=== PATIENT | female | born 1985 | race American Indian/Alaskan Native ===

== ENCOUNTER 2016-10-07 04:38 | Emergency (ER) | payer OTHER ==
[2016-10-07 05:05] VITALS: BP 132/82
[2016-10-07] MEDS ORDERED: COMBIVIR 150-300 mg PO ONE (05:34)
--- NOTE | 2016-10-07 05:44 | Emergency Department Report ---
ED General Adult HPI - General Chief complaint: Medical Clearance Stated complaint: WORKMANS COMP Time Seen by Provider: 10/07/16 05:32 Source: patient Mode of arrival: Ambulatory Limitations: No Limitations - History of Present Illness Initial comments: 31-year-old female with no past medical history presenting to the emergency department after body fluid exposure of the patient. Patient is an employee of [employer]. She states with gloved hands she accidentally grazed her third finger of her right hand with a needle that had just punctured a patient. Patient states initially she did not feel the puncture, she felt a light grazed on her finger, there was no blood on finger, however when she took her glove off and applied pressure to the finger she was able to extract blood. Patient has no other complaints. Patient denies other exposures. - Related Data Previous Rx's Medication Instructions Recorded Last Taken Type Nelfinavir Mesylate [Viracept] 1,250 mg PO BIDWM #6 tablet 10/07/16 Unknown Rx lamiVUDine/ZIDOVUDINE [Combivir 1 each PO BID #6 tablet 10/07/16 Unknown Rx 150/300Mg] Allergies Allergy/AdvReac Type Severity Reaction Status Date / Time No Known Allergies Allergy Verified 08/30/15 04:24 ED Review of Systems ROS: Stated complaint: WORKMANS COMP Other details as noted in HPI Constitutional: denies: chills, fever Eyes: denies: eye pain, eye discharge, vision change ENT: denies: ear pain, throat pain Respiratory: denies: cough, shortness of breath, wheezing Cardiovascular: denies: chest pain, palpitations Endocrine: no symptoms reported Gastrointestinal: denies: abdominal pain, nausea, diarrhea Genitourinary: denies: urgency, dysuria, discharge Musculoskeletal: denies: back pain, joint swelling, arthralgia Skin: denies: rash, lesions Neurological: denies: headache, weakness, paresthesias Psychiatric: denies: anxiety, depression Hematological/Lymphatic: denies: easy bleeding, easy bruising ED Past Medical Hx - Past Medical History Previous Medical History?: Yes Hx Congestive Heart Failure: No Hx Diabetes: (new onset) Hx Asthma: Yes Hx COPD: No - Surgical History Past Surgical History?: Yes Additional Surgical History: feet and ankles - Social History Smoking Status: Never Smoker Substance Use Type: None - Medications Home Medications: Home Medications Medication Instructions Recorded Confirmed Last Taken Type Nelfinavir Mesylate [Viracept] 1,250 mg PO BIDWM #6 tablet 10/07/16 Unknown Rx lamiVUDine/ZIDOVUDINE [Combivir 1 each PO BID #6 tablet 10/07/16 Unknown Rx 150/300Mg] ED Physical Exam - General Limitations: No Limitations General appearance: alert, in no apparent distress - Head Head exam: Present: atraumatic, normocephalic - Eye Eye exam: Present: normal appearance - ENT ENT exam: Present: mucous membranes moist - Neck Neck exam: Present: normal inspection - Respiratory Respiratory exam: Present: normal lung sounds bilaterally. Absent: respiratory distress - Cardiovascular Cardiovascular Exam: Present: regular rate, normal rhythm. Absent: systolic murmur, diastolic murmur, rubs, gallop - GI/Abdominal GI/Abdominal exam: Present: soft, normal bowel sounds - Extremities Exam Extremities exam: Present: normal inspection - Back Exam Back exam: Present: normal inspection - Neurological Exam Neurological exam: Present: alert, oriented X3 - Psychiatric Psychiatric exam: Present: normal affect, normal mood - Skin Skin exam: Present: warm, dry, intact, normal color, other (pt and has small puncture wound on the lateral portion of the tip of her third finger). Absent: rash ED Course Vital Signs 10/07/16 10/07/16 05:01 05:31 Temperature 97.7 F 97.7 F Pulse Rate 76 76 Respiratory 18 18 Rate Blood Pressure 132/82 Blood Pressure 132/82 [Right] O2 Sat by Pulse 100 Oximetry - Reevaluation(s) Reevaluation #1: 10/07/16 05:43 Patient resting complaints ED Medical Decision Making - Lab Data Result diagrams: 10/07/16 05:32 10/07/16 05:32 - Medical Decision Making 31-year-old female presenting to the emergency room after blood/body fluid exposure of a patient. I have followed the employee guidelines/handbook L start patient on Combivir and Viracept Critical care attestation.: If time is entered above; I have spent that time in minutes in the direct care of this critically ill patient, excluding procedure time. ED Disposition Clinical Impression: Patient exposure to body fluids Disposition: DC- TO HOME OR SELFCARE Is pt being admited?: No Does the pt Need Aspirin: No Condition: Stable Instructions: Postexposure Prophylaxis (ED) Prescriptions: lamiVUDine/ZIDOVUDINE [Combivir 150/300Mg] 1 each PO BID #6 tablet Nelfinavir Mesylate [Viracept] 1,250 mg PO BIDWM #6 tablet Referrals: PRIMARY CAREMD [Primary Care Provider] - [facility] [employer] [facility], [LAB/CONTRACT] - 24 Hours KWAN ORTIZ MD [Staff Physician] - 24 Hours
[2016-10-07 05:51] LABS: Bilirubin,Urine NEG (Negative); Blood,Urine NEG (Negative); Ketones,Urine NEG (Negative); Leukocyte Esterase,Urine MOD (Negative); Mucus,Urine FEW /HPF; Nitrite,Urine NEG (Negative); Protein,Urine <15 mg/dL mg/dL (Negative); Urobilinogen,Urine < 2.0 mg/dL (<2.0)
[2016-10-07 05:55] LABS: Basophils % (Auto) 0.5 % (0.0-1.8); Eosinophils % (Auto) 2.6 % (0.0-4.3); Hematocrit 37.2 % (30.3-42.9); Hemoglobin 11.6 gm/dl (10.1-14.3); Mean Corpuscular HGB Conc 31 % (30-34); Mean Corpuscular Volume 74 fl (79-97); Platelet Count 432 K/mm3 (140-440); Red Blood Count 4.99 M/mm3 (3.65-5.03); Red Cell Distribution Width 17.1 % (13.2-15.2); White Blood Count 7.6 K/mm3 (4.5-11.0)
[2016-10-07 06:03] LABS: Anion Gap 17 mmol/L; BUN/Creatinine Ratio 11.66; Blood Urea Nitrogen 7 mg/dL (7-17); Calcium 9.3 mg/dL (8.4-10.2); Carbon Dioxide 26 mmol/L (22-30); Chloride 100.6 mmol/L (98-107); Glucose 110 mg/dL (65-100); Mean Corpuscular Hemoglobin 23 pg (28-32); Sodium 140 mmol/L (137-145)
[2016-10-07 06:13] LABS: HIV-1 Antigen p24 Non React (Non React); HIVR-1/2 Ab Non React (Non React)
[2016-10-07] MEDS ORDERED: RETROVIR PO ONE (07:00)
[2016-10-07] MEDS ORDERED: VIRACEPT PO SCH ×2 (07:00→10:00)
[2016-10-07] MEDS ORDERED: EPIVIR PO ONE (07:00)
== END 2016-10-07 07:10 | disposition home or self-care (01) ==
LOC: ED 04:38
DX: Z77.21 Contact with and (suspected) exposure to potentially hazardous body fluids (principal); J45.909 Unspecified asthma, uncomplicated
CPT/HCPCS: 36415; 80048; 80074; 81001; 81025; 85025; 87806; 99283

== ENCOUNTER 2016-11-12 20:16 | Emergency (ER) | payer SELFPAY ==
[2016-11-12 21:37] LABS: Basophils % (Auto) 0.5 % (0.0-1.8); Eosinophils % (Auto) 3.2 % (0.0-4.3); Hematocrit 35.8 % (30.3-42.9); Hemoglobin 11.3 gm/dl (10.1-14.3); Mean Corpuscular HGB Conc 32 % (30-34); Mean Corpuscular Volume 73 fl (79-97); Platelet Count 415 K/mm3 (140-440); Red Blood Count 4.88 M/mm3 (3.65-5.03); Red Cell Distribution Width 17.7 % (13.2-15.2); White Blood Count 10.4 K/mm3 (4.5-11.0)
[2016-11-12 21:43] LABS: Mean Corpuscular Hemoglobin 23 pg (28-32)
[2016-11-12 22:07] LABS: Alanine Aminotransferase 8 units/L (7-56); Albumin 4.2 g/dL (3.9-5); Albumin/Globulin Ratio 1.1 %; Alkaline Phosphatase 110 units/L (35-129); Anion Gap 16 mmol/L; BUN/Creatinine Ratio 13.33; Blood Urea Nitrogen 8 mg/dL (7-17); Carbon Dioxide 28 mmol/L (22-30); Chloride 99.6 mmol/L (98-107); Glucose 80 mg/dL (65-100); Lipase 13 units/L (13-60); Potassium 4.2 mmol/L (3.6-5.0); Sodium 139 mmol/L (137-145); Total Protein 8.2 g/dL (6.3-8.2)
[2016-11-12 22:08] LABS: Creatine Kinase 63 units/L (30-135)
[2016-11-12 22:14] LABS: Creatine Kinase MB < 1.0 ng/mL (0.0-4.0)
[2016-11-13 00:14] LABS: Bilirubin,Urine NEG (Negative); Blood,Urine NEG (Negative); Ketones,Urine NEG (Negative); Leukocyte Esterase,Urine LG (Negative); Mucus,Urine FEW /HPF; Nitrite,Urine NEG (Negative); Protein,Urine <15 mg/dL mg/dL (Negative)
--- NOTE | 2016-11-13 01:49 | Cat Scan Report ---
FINAL REPORT PROCEDURE: CT ABDOMEN PELVIS WO CON TECHNIQUE: Computerized axial tomography of the abdomen and pelvis was performed without intravenous contrast. This study is performed without intravascular contrast material and its sensitivity for abdominal and pelvic pathology, including neoplasms, inflammation, abscess, free fluid, thrombosis, arterial dissection and infarction, is reduced compared with a contrast enhanced study. HISTORY: abd pain COMPARISON: No prior studies are available for comparison. FINDINGS: Visualized lower thorax: No significant abnormality. Liver: Normal size and attenuation. Spleen: Normal size and attenuation. Gallbladder and biliary system: Normal. Pancreas: Normal. Adrenals: Normal. Kidneys: There are no kidney stones. There is no hydronephrosis or ureterolithiasis.. GI tract: There is no bowel obstruction, colitis or enteritis. The appendix is normal.. Lymph nodes and mesentery: Normal. Vasculature: Normal. Bladder: Normal. Reproductive organs: The uterus is intact. There is a cystic mass anterior to the uterus and superior to the urinary bladder measuring 10.5 by 7 by 10.3 centimeters. This could be a large left ovarian cyst. The right ovary measures 2.8 x 4.6 centimeters.. Peritoneum: There is no ascites or free air, abscess or adenopathy.. Musculoskeletal structures: No significant abnormality. Other: None. IMPRESSION: There are no kidney stones. There is no hydronephrosis or ureterolithiasis.. There is no bowel obstruction, colitis or enteritis. The appendix is normal.. There is a cystic mass anterior to the uterus and superior to the urinary bladder measuring 10.5 by 7 by 10.3 centimeters. This could be a large left ovarian cyst. Cystic neoplasm not excluded. Follow-up recommended. The right ovary measures 2.8 x 4.6 centimeters.. There is no ascites or free air, abscess or adenopathy.. .
--- NOTE | 2016-11-13 03:05 | Emergency Department Report ---
ED Abdominal Pain HPI - General Chief Complaint: Abdominal Pain Stated Complaint: SHARP ABD PAIN Time Seen by Provider: 11/13/16 03:10 Source: patient, family Mode of arrival: Ambulatory Limitations: No Limitations - History of Present Illness Initial Comments: Patient here reports that she has right lower quadrant abdominal pain since Tuesday which feels sharp and pressure radiating to her right leg and back. She is also complaining or right leg and right lower back pain since Tuesday. She denies nausea or vomiting. Denies diarrhea. Denies vaginal discharge or bleeding. Denies painful urination or any trauma. Last bowel movement was yesterday. Pain is 5 out of 10. No [id number] medication taken. She denies any fever or chills. Patient has a history of new onset diabetes and asthma. She had surgery to her feet and ankles in the past. MD Complaint: abdominal pain Onset/Timin -: days(s) Location: RLQ Radiation: back, other (right leg right leg) Migration to: no migration Severity scale (0 -10): 5 Quality: sharp Consistency: intermittent Improves With: nothing Worsens With: nothing Context: other (unknown) Associated Symptoms: denies: nausea, vomiting, diarrhea, fever, chills, constipation, dysuria, hematemesis, hematochezia, melena, hematuria, anorexia, syncope Treatments Prior to Arrival: NSAIDs - Related Data LMP Date: 10/01/16 Previous Rx's Medication Instructions Recorded Last Taken Type Nelfinavir Mesylate [Viracept] 1,250 mg PO BIDWM #6 tablet 10/07/16 Unknown Rx lamiVUDine/ZIDOVUDINE [Combivir 1 each PO BID #6 tablet 10/07/16 Unknown Rx 150/300Mg] Naproxen [Naprosyn TAB] 500 mg PO BID PRN #20 tablet 11/13/16 Unknown Rx Nitrofurantoin Obion/M-Cryst 100 mg PO Q12HR #14 capsule 11/13/16 Unknown Rx [Macrobid CAP] Promethazine [Phenergan TAB] 25 mg PO Q8HR PRN #15 tab 11/13/16 Unknown Rx Allergies Allergy/AdvReac Type Severity Reaction Status Date / Time No Known Allergies Allergy Verified 08/30/15 04:24 ED Review of Systems ROS: Stated complaint: SHARP ABD PAIN Other details as noted in HPI Comment: All other systems reviewed and negative Constitutional: denies: chills, fever Respiratory: no symptoms reported Cardiovascular: denies: chest pain, palpitations, edema, syncope Gastrointestinal: abdominal pain. denies: nausea, vomiting, diarrhea, constipation, hematemesis, melena, hematochezia Genitourinary: denies: urgency, dysuria, frequency, hematuria, discharge Musculoskeletal: back pain, arthralgia. denies: joint swelling, myalgia Skin: denies: rash Neurological: denies: headache, weakness, numbness, paresthesias, confusion, abnormal gait, vertigo ED Past Medical Hx - Past Medical History Previous Medical History?: Yes Hx Congestive Heart Failure: No Hx Diabetes: Yes (new onset) Hx Asthma: Yes Hx COPD: No - Surgical History Past Surgical History?: Yes Additional Surgical History: feet and ankles - Family History Family history: hypertension - Social History Smoking Status: Never Smoker Substance Use Type: Alcohol - Medications Home Medications: Home Medications Medication Instructions Recorded Confirmed Last Taken Type Nelfinavir Mesylate [Viracept] 1,250 mg PO BIDWM #6 tablet 10/07/16 Unknown Rx lamiVUDine/ZIDOVUDINE [Combivir 1 each PO BID #6 tablet 10/07/16 Unknown Rx 150/300Mg] Naproxen [Naprosyn TAB] 500 mg PO BID PRN #20 tablet 11/13/16 Unknown Rx Nitrofurantoin Obion/M-Cryst 100 mg PO Q12HR #14 capsule 11/13/16 Unknown Rx [Macrobid CAP] Promethazine [Phenergan TAB] 25 mg PO Q8HR PRN #15 tab 11/13/16 Unknown Rx ED Physical Exam - General Limitations: No Limitations General appearance: alert, in no apparent distress - Head Head exam: Present: atraumatic, normocephalic, normal inspection - Eye Eye exam: Present: normal appearance, PERRL, EOMI Pupils: Present: normal accommodation - ENT ENT exam: Present: normal exam, normal orophraynx, mucous membranes moist - Neck Neck exam: Present: normal inspection, full ROM. Absent: tenderness, meningismus, lymphadenopathy - Respiratory Respiratory exam: Present: normal lung sounds bilaterally. Absent: respiratory distress, chest wall tenderness - Cardiovascular Cardiovascular Exam: Present: regular rate, normal rhythm, normal heart sounds - GI/Abdominal GI/Abdominal exam: Present: soft, tenderness, guarding, rebound, normal bowel sounds. Absent: distended, rigid, organomegaly, mass, bruit, pulsatile mass, hernia - Extremities Exam Extremities exam: Present: normal inspection, full ROM, normal capillary refill , other (no neurovascular compromise, no clubbing cyanosis or edema. +2 pulses in all extremities. Capillary refill is less than 3 seconds in all extremities. No joint deformities, crepitus, erythema or swelling. Full range of motion to all extremities with +5/5 strength in all extremities. No motor or sensory deficits to extremities. Patient able to ambulate without any difficulties.). Absent: tenderness, pedal edema, joint swelling, calf tenderness - Back Exam Back exam: Present: normal inspection, full ROM. Absent: tenderness, CVA tenderness (R), CVA tenderness (L), muscle spasm, paraspinal tenderness, vertebral tenderness, rash noted - Expanded Back Exam Expanded Back exam: Absent: saddle anesthesia Back exam: Negative Straight Leg Raising: Left, Right - Neurological Exam Neurological exam: Present: alert, oriented X3, normal gait, reflexes normal. Absent: motor sensory deficit - Psychiatric Psychiatric exam: Present: normal affect, normal mood - Skin Skin exam: Present: warm, dry, intact, normal color. Absent: rash ED Course Vital Signs 11/12/16 20:45 Temperature 99.0 F Pulse Rate 97 H Respiratory 20 Rate Blood Pressure 138/84 [Right] O2 Sat by Pulse 100 Oximetry Vital Signs 11/12/16 11/13/16 20:45 05:57 Temperature 99.0 F Pulse Rate 97 H Respiratory 20 18 Rate Blood Pressure 138/84 [Right] O2 Sat by Pulse 100 100 Oximetry Vital Signs 11/12/16 11/13/16 11/13/16 20:45 05:57 06:12 Temperature 99.0 F Pulse Rate 97 H 74 Respiratory 20 18 18 Rate Blood Pressure 138/84 134/95 [Right] O2 Sat by Pulse 100 100 99 Oximetry - Reevaluation(s) Reevaluation #1: 11/13/16 06:12 Patient received Zofran 8 mg ODT, Rocephin 1 g IM and Percocet 5/325 2 tablets by mouth in emergency room. ED Medical Decision Making - Lab Data Result diagrams: 11/12/16 21:01 11/12/16 21:01 Lab Results 11/12/16 11/12/16 11/12/16 Range/Units 21:01 21:01 21:01 WBC 10.4 (4.5-11.0) K/mm3 RBC 4.88 (3.65-5.03) M/mm3 Hgb 11.3 (10.1-14.3) gm/dl Hct 35.8 (30.3-42.9) % MCV 73 L (79-97) fl MCH 23 L (28-32) pg MCHC 32 (30-34) % RDW 17.7 H (13.2-15.2) % Plt Count 415 (140-440) K/mm3 Lymph % (Auto) 18.5 (13.4-35.0) % Obion % (Auto) 4.7 (0.0-7.3) % Eos % (Auto) 3.2 (0.0-4.3) % Baso % (Auto) 0.5 (0.0-1.8) % Lymph # 1.9 (1.2-5.4) K/mm3 Obion # 0.5 (0.0-0.8) K/mm3 Eos # 0.3 (0.0-0.4) K/mm3 Baso # 0.0 (0.0-0.1) K/mm3 Seg Neutrophils % 73.1 H (40.0-70.0) % Seg Neutrophils # 7.6 (1.8-7.7) K/mm3 Sodium 139 (137-145) mmol/L Potassium 4.2 (3.6-5.0) mmol/L Chloride 99.6 (98-107) mmol/L Carbon Dioxide 28 (22-30) mmol/L Anion Gap 16 mmol/L BUN 8 (7-17) mg/dL Creatinine 0.6 L (0.7-1.2) mg/dL Estimated GFR > 60 ml/min BUN/Creatinine Ratio 13.33 % Glucose 80 (65-100) mg/dL Lactic Acid (0.7-2.0) mmol/L Calcium 9.0 (8.4-10.2) mg/dL Total Bilirubin 0.40 (0.1-1.2) mg/dL AST 13 (5-40) units/L ALT 8 (7-56) units/L Alkaline Phosphatase 110 (35-129) units/L Total Creatine Kinase (30-135) units/L CK-MB (CK-2) (0.0-4.0) ng/mL CK-MB (CK-2) Rel Index (0-4) C-Reactive Protein (0.00-1.30) mg/dL Total Protein 8.2 (6.3-8.2) g/dL Albumin 4.2 (3.9-5) g/dL Albumin/Globulin Ratio 1.1 % Lipase 13 (13-60) units/L HCG, Qual Negative (Negative) Urine Color (Yellow) Urine Turbidity (Clear) Urine pH (5.0-7.0) Ur Specific [place] (1.003-1.030) Urine Protein (Negative) mg/dL Urine Glucose (UA) (Negative) mg/dL Urine Ketones (Negative) mg/dL Urine Blood (Negative) Urine Nitrite (Negative) Urine Bilirubin (Negative) Urine Urobilinogen (<2.0) mg/dL Ur Leukocyte Esterase (Negative) Urine WBC (Auto) (0.0-6.0) /HPF Urine RBC (Auto) (0.0-6.0) /HPF U Epithel Cells (Auto) (0-13.0) /HPF Urine Mucus /HPF 11/12/16 11/12/16 11/12/16 Range/Units 21:01 21:01 23:16 WBC (4.5-11.0) K/mm3 RBC (3.65-5.03) M/mm3 Hgb (10.1-14.3) gm/dl Hct (30.3-42.9) % MCV (79-97) fl MCH (28-32) pg MCHC (30-34) % RDW (13.2-15.2) % Plt Count (140-440) K/mm3 Lymph % (Auto) (13.4-35.0) % Obion % (Auto) (0.0-7.3) % Eos % (Auto) (0.0-4.3) % Baso % (Auto) (0.0-1.8) % Lymph # (1.2-5.4) K/mm3 [place] # (0.0-0.8) K/mm3 Eos # (0.0-0.4) K/mm3 Baso # (0.0-0.1) K/mm3 Seg Neutrophils % (40.0-70.0) % Seg Neutrophils # (1.8-7.7) K/mm3 Sodium (137-145) mmol/L Potassium (3.6-5.0) mmol/L Chloride (98-107) mmol/L Carbon Dioxide (22-30) mmol/L Anion Gap mmol/L BUN (7-17) mg/dL Creatinine (0.7-1.2) mg/dL Estimated GFR ml/min BUN/Creatinine Ratio % Glucose (65-100) mg/dL Lactic Acid 0.40 L (0.7-2.0) mmol/L Calcium (8.4-10.2) mg/dL Total Bilirubin (0.1-1.2) mg/dL AST (5-40) units/L ALT (7-56) units/L Alkaline Phosphatase (35-129) units/L Total Creatine Kinase 63 (30-135) units/L CK-MB (CK-2) < 1.0 (0.0-4.0) ng/mL CK-MB (CK-2) Rel Index 1.5 (0-4) C-Reactive Protein 2.80 H (0.00-1.30) mg/dL Total Protein (6.3-8.2) g/dL Albumin (3.9-5) g/dL Albumin/Globulin Ratio % Lipase (13-60) units/L HCG, Qual (Negative) Urine Color Yellow (Yellow) Urine Turbidity Cloudy (Clear) Urine pH 5.0 (5.0-7.0) Ur Specific [place] 1.024 (1.003-1.030) Urine Protein <15 mg/dl (Negative) mg/dL Urine Glucose (UA) Neg (Negative) mg/dL Urine Ketones Neg (Negative) mg/dL Urine Blood Neg (Negative) Urine Nitrite Neg (Negative) Urine Bilirubin Neg (Negative) Urine Urobilinogen 2.0 (<2.0) mg/dL Ur Leukocyte Esterase Lg (Negative) Urine WBC (Auto) 27.0 H (0.0-6.0) /HPF Urine RBC (Auto) 18.0 (0.0-6.0) /HPF U Epithel Cells (Auto) 40.0 H (0-13.0) /HPF Urine Mucus Few /HPF Urine culture pending - Radiology Data Radiology results: report reviewed CT scan of the abdomen and pelvis without contrast revealed there are no kidney stones. There are no hydronephrosis or ureteral stones noted. There is no bowel obstruction, colitis or enteritis. The appendix is normal. There is a cystic mass anterior to the uterus and superior to the urinary bladder measuring 10.5 x 7 x 10.3 cm. This could be a large left ovarian cyst. Cystic neoplasm not excluded. Follow-up recommended. The right ovary measured 2.8 x 4.6 cm. There is no ascites or free fluid abscess , liver, spleen, gallbladder and biliary systems normal pancreas and adrenals are normal. Lymph nodes and mesenteric normal. Vasculature is normal bladder is normal. Ultrasound transvaginal and pelvic complete to reveals right adnexal cyst measuring 10.3 cm. There is no solid mass. Left ovary is normal. There are uterine fibroids. There is no free fluid. Cervix is normal. - Medical Decision Making ED course: Patient here with right lower quadrant abdominal pain or radiation to right back and leg. CT scan revealed that patient had cystic mass and could not rule out neoplasm. CT scan also revealed fibroids but no other abnormalities. Patient had pelvic and transvaginal ultrasound done which revealed a right adnexal cyst without any solid mass. Left ovary is normal and uterine fibroids seen. Please refer to radiology report for details on CT scan and ultrasound. CBC within normal limits, C-reactive protein mildly elevated, urinalysis positive for bacterial infection and urine cultures pending. test is negative. CMP is normal. Work and ultrasound along with CT scan discussed the patient and she voiced understanding. She was understanding of diagnosis and treatment plan. Discussed the patient she will need to follow- up with [employer] on patient for further follow-up of ovarian cyst and fibroids. I also told her that is possibly have been lower extremity pain due to fibroids but she'll need to verify this with [employer] [facility] follow-up. Patient was given Rocephin 1 g IM for urinary tract infection, Zofran 8 mg by mouth ODT for nausea prevention and Percocet 5/325 2 tablets by mouth for pain. Patient discharged home with prescription for naproxen and Macrobid in stable condition accompanied by her family member. Critical care attestation.: If time is entered above; I have spent that time in minutes in the direct care of this critically ill patient, excluding procedure time. ED Disposition Clinical Impression: Ovarian cyst, right, Acute cystitis without hematuria, Right lower quadrant abdominal pain, Arthralgia of right lower leg Uterine fibroid Qualifiers: Uterine leiomyoma location: unspecified location Qualified Code(s): D25.9 - Leiomyoma of uterus, unspecified Back pain Qualifiers: Back pain location: low back pain Chronicity: acute Back pain laterality: right Sciatica presence: without sciatica Qualified Code(s): M54.5 - Low back pain Disposition: TO HOME OR SELFCARE Is pt being admited?: No Does the pt Need Aspirin: No Condition: Stable Instructions: Abdominal Pain (ED), Arthralgia (ED), Ovarian Cyst (ED), Uterine Fibroids (ED), Acute Low Back Pain (ED), Urinary Tract Infection in Women (ED) Additional Instructions: Please take antibiotic as prescribed. Follow-up with [facility] [facility] that you were referred to. Please see discharge instruction paperwork for phone number and address. Please follow up with [employer] [facility] regarding in ovarian cyst and uterine fibroids. Please increase her fluid intake. Take naproxen for pain as instructed Prescriptions: Naproxen [Naprosyn TAB] 500 mg PO BID PRN #20 tablet PRN Reason: Pain Nitrofurantoin Obion/M-Cryst [Macrobid CAP] 100 mg PO Q12HR #14 capsule Promethazine [Phenergan TAB] 25 mg PO Q8HR PRN #15 tab PRN Reason: Nausea Referrals: ZBIGNIEW NUÑEZ MD [Staff Physician] - 2-3 Days PRIMARY CAREMD [Primary Care Provider] - 2-3 Days Forms: Accompanied Note, Work/School Release Form(ED)
[2016-11-13] MEDS ORDERED: XYLOCAINE 1% MPF 5 mL INFILTRATI ONE (03:16)
[2016-11-13] MEDS ORDERED: ZOFRAN ODT ONE (03:16)
[2016-11-13] MEDS ORDERED: ROCEPHIN IM STA (03:16)
[2016-11-13] MEDS ORDERED: PERCOCET 5/325 PO ONE (03:16)
[2016-11-13] MEDS ORDERED: ZOFRAN ODT PO ONE (03:16)
[2016-11-13] MEDS ORDERED: PERCOCET 5/325 ONE (03:16)
--- NOTE | 2016-11-13 04:22 | Ultrasound Report ---
FINAL REPORT PROCEDURE: US PELVIC COMPLETE TECHNIQUE: Real-time transabdominal sonography in multiple planes of pelvis was performed with image documentation. This examination was performed without Doppler. Vascular abnormalities, including ovarian torsion, will not be detectable without Doppler evaluation. CPT 60955 HISTORY: CT shows cystic mass ant buterus/superior bladder COMPARISON: No prior studies are available for comparison. FINDINGS: UTERUS Size: 6.2 x 4.9 x 4.6 cm. Endometrial thickness: 5.4 mm. Orientation: anteverted. Cervix: Normal. Fibroids/masses: There are 2 discrete fibroids measuring 1.6 at 3.3 centimeters.. RIGHT Ovary: No discrete ovary is seen. There is a cystic mass measuring 10.3 centimeters in diameter. LEFT Ovary: 2.2 x 1.9 x 1.8 cm. Appearance: Normal. Pelvic fluid: None. Other: None. IMPRESSION: Right adnexal cyst measuring 10.3 centimeters. There is no solid mass. Left ovary is normal. There are uterine fibroids. There is no free fluid.
--- NOTE | 2016-11-13 04:24 | Ultrasound Report ---
FINAL REPORT PROCEDURE: US PELVIC TRANSVAGINAL TECHNIQUE: Real-time transvaginal sonography in multiple planes of pelvis was performed with image documentation. This examination was performed without Doppler. Vascular abnormalities, including ovarian torsion, will not be detectable without Doppler evaluation. HISTORY: CT shows cystic mass ant buterus/superior bladder COMPARISON: No prior studies are available for comparison. FINDINGS: UTERUS Size: 6.2 x 4.9 x 4.6 cm. Endometrial thickness: 5.4 mm. Orientation: anteverted. Cervix: Normal. Fibroids/masses: There are 2 discrete fibroids measuring 1.6 at 3.3 centimeters.. RIGHT Ovary: No discrete ovary is seen. There is a cystic mass measuring 10.3 centimeters in diameter. LEFT Ovary: 2.2 x 1.9 x 1.8 cm. Appearance: Normal. Pelvic fluid: None. Other: None. IMPRESSION: Right adnexal cyst measuring 10.3 centimeters. There is no solid mass. Left ovary is normal. There are uterine fibroids. There is no free fluid.
[2016-11-13 06:13] VITALS: BP 134/95
== END 2016-11-13 06:36 | disposition home or self-care (01) ==
LOC: ED 20:16 → EEVIPCON 20:16 → ED 11-13 06:36
DX: D25.9 Leiomyoma of uterus, unspecified (principal); N30.00 Acute cystitis without hematuria; N83.201 Unspecified ovarian cyst, right side; M54.5 Low back pain; R10.31 Right lower quadrant pain; E11.9 Type 2 diabetes mellitus without complications; J45.909 Unspecified asthma, uncomplicated
CPT/HCPCS: 36415; 74176; 76830; 76856; 80053; 81001; 82140; 82550; 82553; 83690; 84703; 85025; 86140; 87086; 96372; 99284; J0696; Q0162

== ENCOUNTER 2017-05-03 00:07 | Emergency (ER) | payer SELFPAY ==
[2017-05-03] MEDS ORDERED: ZOFRAN IM ONE (00:26)
[2017-05-03 01:49] LABS: BUN/Creatinine Ratio 22; Basophils % (Auto) 0.4 % (0.0-1.8); Blood Urea Nitrogen 13 mg/dL (7-17); Calcium 9.2 mg/dL (8.4-10.2); Eosinophils # (Auto) 0.2 K/mm3 (0.0-0.4); Eosinophils % (Auto) 2.4 % (0.0-4.3); Hematocrit 36.6 % (30.3-42.9); Hemoglobin 11.8 gm/dl (10.1-14.3); Hemolysis Index 0; Lymphocytes # (Auto) 1.1 K/mm3 (1.2-5.4); Lymphocytes % (Auto) 14.3 % (13.4-35.0); Mean Corpuscular HGB Conc 32 % (30-34); Mean Corpuscular Volume 76 fl (79-97); Monocytes # (Auto) 0.3 K/mm3 (0.0-0.8); Platelet Count 396 K/mm3 (140-440); Red Blood Count 4.79 M/mm3 (3.65-5.03); Red Cell Distribution Width 17.5 % (13.2-15.2)
[2017-05-03 01:50] LABS: Mean Corpuscular Hemoglobin 25 pg (28-32)
[2017-05-03] MEDS ORDERED: ANTIVERT PO ONE (10:26)
[2017-05-03] MEDS ORDERED: REGLAN IV ONE (10:26)
--- NOTE | 2017-05-03 10:28 | Emergency Department Report ---
ED Dizziness HPI - General Chief Complaint: Syncope Stated Complaint: DIZZY/ Time Seen by Provider: 05/03/17 10:12 Source: patient, RN notes reviewed, old records reviewed Mode of arrival: Ambulatory Limitations: No Limitations - History of Present Illness Initial Comments: This is a 32-year-old female who is previously unknown to this provider, patient has a past medical history of asthma, presents to the ER today with a complaint of room spinning and movement since [place] time. She initially reported that the sensation is intermittent, and then she reported that it is constant. The sensation worsens with movement, and decreases with rest. Denies severe headache, neck pain, chest pain, abdominal pain, shortness of breath, visual loss, focal extremity weakness, numbness. Patient denies tinnitus, denies change in auditory acuity, denies recent cold/ upper respiratory tract symptoms. MD Complaint: dizziness, difficulty walking -: Gradual, days(s) Timing: sudden onset Description: "room spinning" History of Same: No History of Trauma: No Severity: moderate Improves With: remaining still Worsens With: movement Associated Symptoms: ataxia. denies: chest pain, confusion, cough, diaphoresis , fever/chills, loss of appetite, malaise, seizure, shortness of breath, syncope , weakness - Related Data Previous Rx's Medication Instructions Recorded Last Taken Type Nelfinavir Mesylate [Viracept] 1,250 mg PO BIDWM #6 tablet 10/07/16 Unknown Rx lamiVUDine/ZIDOVUDINE [Combivir 1 each PO BID #6 tablet 10/07/16 Unknown Rx 150/300Mg] Naproxen [Naprosyn TAB] 500 mg PO BID PRN #20 tablet 11/13/16 Unknown Rx Nitrofurantoin [place]/M-Cryst 100 mg PO Q12HR #14 capsule 11/13/16 Unknown Rx [Macrobid CAP] Promethazine [Phenergan TAB] 25 mg PO Q8HR PRN #15 tab 11/13/16 Unknown Rx Allergies Allergy/AdvReac Type Severity Reaction Status Date / Time No Known Allergies Allergy Verified 08/30/15 04:24 ED Review of Systems ROS: Stated complaint: DIZZY/ Other details as noted in HPI ED Past Medical Hx - Past Medical History Hx Congestive Heart Failure: No Hx Diabetes: Yes (new onset) Hx Asthma: Yes Hx COPD: No Additional medical history: Vertigo - Surgical History Additional Surgical History: feet and ankles - Social History Smoking Status: Never Smoker Substance Use Type: None - Medications Home Medications: Home Medications Medication Instructions Recorded Confirmed Last Taken Type Nelfinavir Mesylate [Viracept] 1,250 mg PO BIDWM #6 tablet 10/07/16 Unknown Rx lamiVUDine/ZIDOVUDINE [Combivir 1 each PO BID #6 tablet 10/07/16 Unknown Rx 150/300Mg] Naproxen [Naprosyn TAB] 500 mg PO BID PRN #20 tablet 11/13/16 Unknown Rx Nitrofurantoin [place]/M-Cryst 100 mg PO Q12HR #14 capsule 11/13/16 Unknown Rx [Macrobid CAP] Promethazine [Phenergan TAB] 25 mg PO Q8HR PRN #15 tab 11/13/16 Unknown Rx ED Physical Exam - General Limitations: Physical Limitation General appearance: alert, in no apparent distress - Head Head exam: Present: atraumatic, normocephalic - Eye Eye exam: Present: normal appearance, PERRL, nystagmus (patient noted to have nystagmus with head impulse testing. The nystagmus is bidirectional and horizontally directed. Patient has difficulty keeping her eyes open, and it is difficult to ascertain whether or not she corrects immediately, or if there is delayed response.). Absent: EOMI - ENT ENT exam: Present: normal exam, normal orophraynx, mucous membranes moist, normal external ear exam - Neck Neck exam: Present: normal inspection, full ROM - Respiratory Respiratory exam: Present: normal lung sounds bilaterally. Absent: respiratory distress - Cardiovascular Cardiovascular Exam: Present: regular rate, normal rhythm, normal heart sounds. Absent: systolic murmur, diastolic murmur, rubs, gallop - GI/Abdominal GI/Abdominal exam: Present: soft, normal bowel sounds. Absent: distended, tenderness, guarding, rebound, rigid, pulsatile mass - Extremities Exam Extremities exam: Present: normal inspection, full ROM, normal capillary refill. Absent: tenderness, pedal edema, joint swelling, calf tenderness - Back Exam Back exam: Present: normal inspection - Neurological Exam Neurological exam: Present: alert, oriented X3, CN II-XII intact, abnormal gait , other (Extraocular movements intact. Tongue midline. No facial droop. Facial sensation intact to light touch in the V1, V2, V3 distribution bilaterally. 5 and 5 strength in 4 extremities.. Sensation is intact to light touch in 4 extremities.). Absent: motor sensory deficit - Psychiatric Psychiatric exam: Present: normal affect, normal mood - Skin Skin exam: Present: warm, dry, intact, normal color. Absent: rash ED Course Vital Signs 05/03/17 05/03/17 05/03/17 00:10 00:15 10:09 Temperature 98.5 F 98.5 F Pulse Rate 81 82 Respiratory 18 Rate Blood Pressure 132/91 132/91 O2 Sat by Pulse 100 100 100 Oximetry 05/03/17 05/03/17 05/03/17 10:15 10:30 11:09 Temperature Pulse Rate 68 71 Respiratory 11 L 14 Rate Blood Pressure 122/83 122/83 127/78 O2 Sat by Pulse 99 99 Oximetry 05/03/17 05/03/17 11:15 11:30 Temperature Pulse Rate 65 61 Respiratory 21 16 Rate Blood Pressure 127/78 104/64 O2 Sat by Pulse 100 100 Oximetry ED Medical Decision Making - Lab Data Result diagrams: 05/03/17 01:00 05/03/17 01:00 Vital Signs 05/03/17 05/03/17 05/03/17 00:10 00:15 10:09 Temperature 98.5 F 98.5 F Pulse Rate 81 82 Respiratory 18 Rate Blood Pressure 132/91 132/91 O2 Sat by Pulse 100 100 100 Oximetry 05/03/17 05/03/17 05/03/17 10:15 10:30 11:09 Temperature Pulse Rate 68 71 Respiratory 11 L 14 Rate Blood Pressure 122/83 122/83 127/78 O2 Sat by Pulse 99 99 Oximetry 05/03/17 05/03/17 11:15 11:30 Temperature Pulse Rate 65 61 Respiratory 21 16 Rate Blood Pressure 127/78 104/64 O2 Sat by Pulse 100 100 Oximetry Lab Results 05/03/17 05/03/17 05/03/17 Range/Units 01:00 01:00 01:00 WBC 7.7 (4.5-11.0) K/mm3 RBC 4.79 (3.65-5.03) M/mm3 Hgb 11.8 (10.1-14.3) gm/dl Hct 36.6 (30.3-42.9) % MCV 76 L (79-97) fl MCH 25 L (28-32) pg MCHC 32 (30-34) % RDW 17.5 H (13.2-15.2) % Plt Count 396 (140-440) K/mm3 Lymph % (Auto) 14.3 (13.4-35.0) % [place] % (Auto) 4.0 (0.0-7.3) % Eos % (Auto) 2.4 (0.0-4.3) % Baso % (Auto) 0.4 (0.0-1.8) % Lymph # 1.1 L (1.2-5.4) K/mm3 [place] # 0.3 (0.0-0.8) K/mm3 Eos # 0.2 (0.0-0.4) K/mm3 Baso # 0.0 (0.0-0.1) K/mm3 Seg Neutrophils % 78.9 H (40.0-70.0) % Seg Neutrophils # 6.1 (1.8-7.7) K/mm3 Sodium 139 (137-145) mmol/L Potassium 3.9 (3.6-5.0) mmol/L Chloride 99.9 (98-107) mmol/L Carbon Dioxide 26 (22-30) mmol/L Anion Gap 17 mmol/L BUN 13 (7-17) mg/dL Creatinine 0.6 L (0.7-1.2) mg/dL Estimated GFR > 60 ml/min BUN/Creatinine Ratio 22 % Glucose 100 (65-100) mg/dL Calcium 9.2 (8.4-10.2) mg/dL HCG, Qual Negative (Negative) - EKG Data -: EKG Interpreted by La - EKG Data 05/03/17 12:30 Sinus, 74 bpm, normal axis, normal intervals, not morphologically consistent with ST elevation myocardial infarction - Radiology Data Radiology results: report reviewed, image reviewed Noncontrast CT scan of the brain is negative for acute disease - Medical Decision Making Differential diagnosis, including not limited to: Peripheral vestibulopathy, central vestibulopathy, multiple sclerosis, demyelinating disease Assessment and plan: 32-year-old female with a complaint of persistent room spinning and sensation of movement and unsteady gait since [place]. She has some equivocal findings on her exam, including what appears to be bidirectional horizontal nystagmus, and she has difficulty tolerating the HiNTS exam. Patient specifically has difficulty keeping eyes open during head impulse testing, and it is therefore difficult for this examiner to see whether or not her correction back to midline is delayed, or immediate. Patient medicated appropriately for peripheral vertigo, but is still quite symptomatic and unable to walk with a steady gait. Her symptoms have been present for days, therefore she is not a TPA candidate, and not an endovascular candidate. Therefore, she does not require an emergent CT angiogram, or an emergent MRI, MR angiogram. Case is presented to the Hospital physician, Dr. Flores, who accepted the patient to the medical service for further evaluation. Critical care attestation.: If time is entered above; I have spent that time in minutes in the direct care of this critically ill patient, excluding procedure time. ED Disposition Clinical Impression: Unsteady gait, Vestibulopathy Disposition: OP ADMIT IP TO THIS HOSP Is pt being admited?: Yes Does the pt Need Aspirin: Yes Condition: Stable Referrals: PRIMARY CARE, [Primary Care Provider] - 3-5 Days
--- NOTE | 2017-05-03 10:55 | Cat Scan Report ---
CT HEAD WITHOUT CONTRAST: HISTORY: Vertigo. TECHNIQUE: Sequential 2.5mm CT images. COMPARISON: none. FINDINGS: Cerebral Parenchyma: Within normal limits. Cerebellum: Within normal limits. Brainstem: Within normal limits. Ventricles: Normal. Sella: Normal. Extra-axial spaces: Normal. Basal Cisterns: Normal. Intracranial Hemorrhage: None. Midline Shift: None. Calvarium: Normal. Sinuses: Normal. Mastoid Air Cells: Normal. Visualized Orbits: Normal. IMPRESSION: Cranial CT scan within normal limits.
--- NOTE | 2017-05-03 13:03 | History and Physical Report ---
History of Present Illness Chief complaint: dizziness History of present illness: 32 YO Female with Asthma, DM, presents to ED for evaluation. Pt presents to the ER today with a complaint of room spinning and movement over the past week, with persistent symptoms over the past 4 days. Pt states that the sensation is intermittent, and then she reported that it is constan, worsens with movement, and decreases with rest. Pt denies fever, chills, CP, Palpitations, severe headache, neck pain, chest pain, abdominal pain, shortness of breath, visual loss, focal extremity weakness, numbness, skin rash or loss of bowel/bladder continence. Pt found to have vertigo. Pt treated with meclizine, as well as Vestibular rehab. Pt medically optimized and instructed to f/u pcp 1wk, neurology prn. Past History Past Medical History: diabetes Past Surgical History: No surgical history, Other (reviewed) Social history: single Family history: hypertension Medications and Allergies Allergies Allergy/AdvReac Type Severity Reaction Status Date / Time No Known Allergies Allergy Verified 08/30/15 04:24 Home Medications Medication Instructions Recorded Confirmed Last Taken Type Ibuprofen [Motrin] 400 mg PO Q6H PRN 05/03/17 05/03/17 Unknown History Meclizine [Antivert] 25 mg PO TID PRN #15 tablet 05/03/17 Unknown Rx Review of Systems Constitutional: no weight loss, no weight gain, no fever, no chills Ears, nose, mouth and throat: no ear pain, no ear discharge, no tinnitis, no decreased hearing, no nose pain Breasts: no change in shape, no swelling, no mass Cardiovascular: no chest pain, no orthopnea, no palpitations, no rapid/ irregular heart beat, no edema Respiratory: no cough, no cough with sputum, no excessive sputum, no hemoptysis Gastrointestinal: no abdominal pain, no nausea, no vomiting, no diarrhea Genitourinary Female: no urinary frequency, no urgency, no stress incontinence, no post void dribbling, no incomplete emptying Rectal: no pain, no incontinence, no bleeding Musculoskeletal: no neck stiffness, no neck pain, no shooting arm pain, no arm numbness/tingling, no low back pain, no shooting leg pain, no redness of joints Integumentary: no rash, no pruritis, no redness, no sores, no wounds Neurological: vertigo, no head injury, no transient paralysis, no paralysis, no weakness, no parathesias, no numbness, no tingling, no seizures Psychiatric: anxiety, memory loss, no change in sleep habits, no sleep disturbances, no insomnia, no hypersomnia Endocrine: no cold intolerance, no heat intolerance, no polyphagia, no excessive thirst, no polydipsia, no polyuria, no nocturia Hematologic/Lymphatic: no easy bruising, no easy bleeding Allergic/Immunologic: no urticaria, no allergic rhinitis, no wheezing Exam - Constitutional Vitals: Temp Pulse Resp BP Pulse Ox 98.5 F 61 16 104/64 100 05/03/17 00:15 05/03/17 11:30 05/03/17 11:30 05/03/17 11:30 05/03/17 11:30 General appearance: Present: no acute distress, well-nourished - EENT Eyes: Present: PERRL ENT: hearing intact, clear oral mucosa - Neck Neck: Present: supple, normal ROM - Respiratory Respiratory effort: normal Respiratory: bilateral: CTA - Cardiovascular Heart Sounds: Present: S1 & S2. Absent: rub, click - Extremities Extremities: pulses symmetrical, No edema Peripheral Pulses: within normal limits - Abdominal General gastrointestinal: Present: soft, non-tender, non-distended, normal bowel sounds Female genitourinary: Present: normal - Integumentary Integumentary: Present: clear, warm, dry - Musculoskeletal Musculoskeletal: gait normal, strength equal bilaterally - Psychiatric Psychiatric: appropriate mood/affect, intact judgment & insight - Neurologic Neurologic: CNII-XII intact, moves all extremities Results - Labs CBC & Chem 7: 05/03/17 01:00 05/03/17 01:00 Labs: Abnormal lab results 05/03/17 05/03/17 Range/Units 01:00 01:00 MCV 76 L (79-97) fl MCH 25 L (28-32) pg RDW 17.5 H (13.2-15.2) % Lymph # 1.1 L (1.2-5.4) K/mm3 Seg Neutrophils % 78.9 H (40.0-70.0) % Creatinine 0.6 L (0.7-1.2) mg/dL Assessment and Plan - Patient Problems (1) Vertigo Status: Acute Plan to address problem: meclizine, PRN, PT Consulted, and pt underwent vestibular rehab therapy in ED, Pt medically optimized and discharged home, and instructed to f/u pcp 1wk, neurology prn. (2) Asthma Status: Acute (3) Diabetes Status: Acute
[2017-05-03 17:25] VITALS: BP 116/75
== END 2017-05-03 16:50 | disposition admitted as inpatient to this hospital (09) ==
LOC: EEVIPCON 00:07 → ED 00:07
DX: R26.81 Unsteadiness on feet (principal); H81.20 Vestibular neuronitis, unspecified ear; E11.9 Type 2 diabetes mellitus without complications; J45.909 Unspecified asthma, uncomplicated
CPT/HCPCS: 36415; 70450; 80048; 84703; 85025; 93005; 93010; 96372; 96374; 99284; J2405; J2765